=== PATIENT | female | born 1990 | race American Indian/Alaskan Native ===

== ENCOUNTER 2018-08-31 12:37 | Inpatient (IN) | payer OTHER ==
[2018-08-31] MEDS ORDERED: LACTATED RINGERS 1,000 ML ONE (17:22)
[2018-08-31] MEDS ORDERED: BRETHINE SUB-Q PRN (17:48)
[2018-08-31] MEDS ORDERED: ZOFRAN IV PRN (17:48)
[2018-08-31] MEDS ORDERED: XYLOCAINE 2% INFILTRATI ONE (17:48)
[2018-08-31] MEDS ORDERED: STADOL IV PRN (17:48)
[2018-08-31] MEDS ORDERED: BRETHINE IVP PRN (17:48)
[2018-08-31] MEDS ORDERED: MINERAL OIL PO PRN (17:48)
[2018-08-31] MEDS ORDERED: SUBLIMAZE IV PRN (17:48)
[2018-08-31] MEDS ORDERED: AMPICILLIN/NS 2 GM/100 ML 2 GM/100 ML BAG IV ONE (17:48)
[2018-08-31] MEDS ORDERED: PHENERGAN PO PRN (17:48)
--- NOTE | 2018-08-31 17:56 | History and Physical Report ---
History of Present Illness Date of examination: 08/31/18 Chief complaint: Labor History of present illness: Pt is a 27yo BF EDC 09/05/18; EGA 39 2/7 weeks presents to L&D complaining of RUC's q 3-4 mins. She received late care at [facility] since 22 weeks and course has been unremarkable. records are available and GBS is Negative. Past History Past Medical History: no pertinent history Past Surgical History: no surgical history Social history: no significant social history, - Obstetrical History Expected Date of Delivery: 09/05/18 Actual Gestation: 39 Week(s) 2 Day(s) : 3 Medications and Allergies Allergies Allergy/AdvReac Type Severity Reaction Status Date / Time No Known Allergies Allergy Verified 06/01/13 22:23 Active Meds: Active Medications Butorphanol Tartrate (Stadol) 2 mg IV Q2H PRN PRN Reason: Pain , Severe (7-10) Ephedrine Sulfate (Ephedrine Sulfate) 10 mg IV Q2M PRN PRN Reason: Hypotension Fentanyl (Sublimaze) 100 mcg IV Q2H PRN PRN Reason: Labor Pain Ampicillin Sodium (Ampicillin/Ns 1 Gm/50 Ml) 1 gm in 50 mls @ 100 mls/hr IV Q4HR EZRA; Protocol Ampicillin Sodium (Polycillin/Ns 2 Gm/100 Ml) 2 gm in 100 mls @ 100 mls/hr IV ONCE ONE; Protocol Stop: 08/31/18 18:47 Lactated Ringer's (Lactated Ringers) 1,000 mls @ 125 mls/hr IV DIRECT EZRA Lidocaine (Xylocaine 2%) 20 ml INFILTRATI ONCE ONE Stop: 08/31/18 17:49 Review of Systems All systems: negative - Vital Signs Vital signs: Vital Signs Pulse BP 88 119/71 08/31/18 12:58 08/31/18 12:58 Temp Pulse Resp BP Pulse Ox 98.5 F 88 18 119/71 08/31/18 13:30 08/31/18 12:58 08/31/18 13:30 08/31/18 12:58 - Physical Exam Breasts: Positive: deferred Cardiovascular: Regular rate Lungs: Positive: Clear to auscultation Abdomen: Positive: normal appearance Genitourinary (Female): Positive: normal external genitalia Vagina: Positive: normal moisture Uterus: Positive: enlarged Extremities: Positive: normal - Obstetrical FHR: category 1 Uterine Contraction Monitor Mode: External Cervical Dilatation: 4 (per nurse) Cervical Effacement Percentage: 70 (per nurse) station: -1 Uterine Contraction Pattern: Regular Uterine Tone Measurement Phase: Contraction Uterine Contraction Intensity: Moderate Results Result Diagrams: 08/31/18 17:45 All other labs normal. Assessment and Plan - Patient Problems (1) 39 weeks gestation of Onset Date: 08/31/18 Current Visit: Yes Status: Acute Plan to address problem: A: IUP @ 39 2/7 weeks in labor P: Admit to L&D for expectant vaginal delivery
[2018-08-31] MEDS ORDERED: LACTATED RINGERS 1,000 ML IV SCH (18:00)
[2018-08-31] MEDS ORDERED: PITOCin/NS 20 UNIT/1000ML DRIP 20 UNITS/1,000 ML BAG IV SCH (18:00)
[2018-08-31] MEDS ORDERED: PITOCin/NS 30 UNIT/500ML 30 UNITS/500 ML BAG IV SCH ×2 (18:00)
[2018-08-31 18:14] VITALS: BP 118/78
[2018-08-31 18:38] LABS: Hematocrit 30.5 % (30.3-42.9); Hemoglobin 10.1 gm/dl (10.1-14.3); Mean Corpuscular HGB Conc 33 % (30-34); Mean Corpuscular Volume 73 fl (79-97); Red Blood Count 4.18 M/mm3 (3.65-5.03); Red Cell Distribution Width 28.4 % (13.2-15.2)
[2018-08-31 18:39] LABS: Platelet Count 176 K/mm3 (140-440)
[2018-08-31] MEDS ORDERED: AMPICILLIN/NS 1 GM/50 ML 1 GM/50 ML BAG IV SCH (21:51)
--- NOTE | 2018-09-01 11:57 | Discharge Summary ---
Providers - Providers Date of Admission: 08/31/18 18:00 Date of discharge: 09/01/18 Attending physician: TRAVON BIRAHIM Primary care physician: TRAVON IBRAHIM Hospitalization Reason for admission: observation, IUP at term Other procedures: none complications: none Discharge diagnosis: other (IUP @ 39 weeks not in labor) Hospital course: Unremarkable. Condition at discharge: Good Disposition: DC-01 TO HOME OR SELFCARE - Discharge Diagnoses (1) 39 weeks gestation of Status: Acute Plan - Provider Discharge Summary Activity: routine, no sex for 6 weeks, no heavy lifting 4 weeks, no strenuous exercise Diet: routine Instructions: routine Additional instructions: [] Smoking cessation referral if applicable(refer to patient education folder for contact #) [] Refer to [facility] Booklet Call your doctor immediately for: * Fever > 100.5 * Heavy vaginal bleeding ( >1 pad per hour) * Severe persistent headache * Shortness of breath * Reddened, hot, painful area to leg or breast * Drainage or odor from incision. * Keep incision clean and dry at all times and follow doctor's instructions regarding bathing/showering - Follow up plan Follow up: TRAVON IBRAHIM MD [Primary Care Provider] - 7 Days
== END 2018-09-01 08:00 | disposition home or self-care (01) | DRG 782 ==
LOC: TRG 12:37 → LD 18:00
PROVIDERS: ADMIT Obstetrics & Gynecology; ATTEND Obstetrics & Gynecology
DX: O62.9 Abnormality of forces of labor, unspecified (principal); Z3A.39 39 weeks gestation of pregnancy
CPT/HCPCS: 36415; 85027; 86592; 86850; 86900; 86901; G0378; J0290; J2590; J7120